=== PATIENT | male | born 1940 | race Caucasian/White ===

== ENCOUNTER 2017-05-24 15:26 | Inpatient (IN) | payer MEDICARE ==
[2017-05-24] MEDS ORDERED: HOME MEDICATION LIST NEEDED 1 EA EACH MC ONE (16:24)
[2017-05-24 16:32] LABS: HEMATOCRIT 44.3 % (42.0-54.0); HEMOGLOBIN 15.1 g/dL (14.0-18.0); MEAN CORPUSCULAR HEMOGLOBIN 33.1 pg (29.0-35.0); RED BLOOD COUNT 4.56 X 10^6uL (4.20-6.10); WHITE BLOOD COUNT 9.5 X 10^3uL (3.9-10.7)
[2017-05-24 16:33] LABS: BASOPHILS 0.4 % (0.0-2.0); BLOOD UREA NITROGEN 17 mg/dL (9-20); CALCIUM 9.8 mg/dL (8.4-10.2); CHLORIDE 105 mmol/L (98-107); EOSINOPHILS 1.6 % (0.0-6.0); EST GLOMERULAR FILTRATION RATE > 60 mL/min; GLUCOSE 101 mg/dL (70-100); LYMPHOCYTES 12.7 % (20.0-40.0); LYMPHOCYTES# 1.2 X 10^3uL (0.8-3.8); MEAN PLATELET VOLUME 6.9 fL (7.4-10.4); MONOCYTES 6.4 % (2.0-10.0); MONOCYTES# 0.6 X 10^3uL (0.2-1.0); NEUTROPHILS 78.9 % (54.0-75.0); NEUTROPHILS# 7.5 X 10^3uL (2.6-6.7); PLATELET COUNT 228 X 10^3uL (130-440); POTASSIUM 4.6 mmol/L (3.5-5.1); SODIUM 142 mmol/L (137-145)
[2017-05-24 16:34] LABS: EOSINOPHILS# 0.2 X 10^3uL (0.0-0.4)
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
[2017-05-24 16:57] LABS: INR 0.9
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
[2017-05-24] MEDS ORDERED: MORPHINE SULFATE 2 MG/ML SYR IV PRN (19:54)
--- NOTE | 2017-05-25 05:56 | RADIOLOGY REPORT ---
Four views of the left hip demonstrate transverse fracture of the femoral neck. There is mild superior displacement and external rotation. The hip joint appears unremarkable. Incidentally noted is right total hip replacement. No other abnormality is identified. IMPRESSION: Acute left femoral neck fracture. MTDD
--- NOTE | 2017-05-25 05:57 | RADIOLOGY REPORT ---
A limited supine rotated single portable view of the chest demonstrates the heart, vessels and lungs to be unremarkable. No infiltrate, fluid or pneumothorax is seen. IMPRESSION: Unremarkable limited single portable view of the chest is described. MTDD
[2017-05-25 06:52] LABS: BLOOD UREA NITROGEN 12 mg/dL (9-20); CALCIUM 8.8 mg/dL (8.4-10.2); CHLORIDE 104 mmol/L (98-107); EST GLOMERULAR FILTRATION RATE > 60 mL/min; GLUCOSE 135 mg/dL (70-100); POTASSIUM 3.6 mmol/L (3.5-5.1); SODIUM 138 mmol/L (137-145)
[2017-05-25 06:59] LABS: HEMATOCRIT 41.6 % (42.0-54.0); HEMOGLOBIN 14.1 g/dL (14.0-18.0); RED BLOOD COUNT 4.31 X 10^6uL (4.20-6.10); WHITE BLOOD COUNT 8.6 X 10^3uL (3.9-10.7)
[2017-05-25 07:00] LABS: BASOPHILS 0.3 % (0.0-2.0); EOSINOPHILS# 0.1 X 10^3uL (0.0-0.4); LYMPHOCYTES 15.1 % (20.0-40.0); LYMPHOCYTES# 1.3 X 10^3uL (0.8-3.8); MEAN CORPUS. HGB CONCENTRATION 33.9 g/dL (32.0-36.0); MEAN CORPUSCULAR HEMOGLOBIN 32.7 pg (29.0-35.0); MEAN PLATELET VOLUME 7.2 fL (7.4-10.4); MONOCYTES 8.7 % (2.0-10.0); MONOCYTES# 0.7 X 10^3uL (0.2-1.0); NEUTROPHILS 74.9 % (54.0-75.0); NEUTROPHILS# 6.4 X 10^3uL (2.6-6.7); PLATELET COUNT 201 X 10^3uL (130-440); RED CELL DISTRIBUTION WIDTH 11.6 % (11.5-14.5)
[2017-05-25] MEDS: ONDANSETRON HCL 4 MG/2 ML VIAL IV PRN ×2 (08:15→13:23)
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
[2017-05-25] MEDS ORDERED: ceFAZolin/DEXTROSE,ISO 2 GM/50 ML PIGGYBACK IV PRN ×3 (13:00→15:10)
[2017-05-25] MEDS ORDERED: TRANEXAMIC ACID 1,000 MG in NORMAL SALINE 100 ML IV SCH ×3 (13:00→15:10)
[2017-05-25] MEDS ORDERED: FAMOTIDINE IN SALINE, ISO-OSM 20 MG/50 ML PIGGYBACK IV SCH ×2 (13:03→15:10)
[2017-05-25] MEDS ORDERED: MORPHINE SULFATE 2 MG/ML SYR IV PRN ×2 (13:03→15:10)
[2017-05-25] MEDS ORDERED: LACTATED RINGERS 1,000 ML IV SCH ×3 (13:03→16:00)
[2017-05-25] MEDS ORDERED: LIDOCAINE HCL 1% 20 ML VIAL SUBCUT PRN ×2 (13:03→15:10)
[2017-05-25] MEDS ORDERED: DEXTROSE 5% LACTATED RINGERS 1,000 ML IV SCH ×4 (13:03→17:00)
[2017-05-25] MEDS ORDERED: ACETAMINOPHEN 1,000 MG/100 ML VIAL IV SCH ×2 (13:03→15:10)
[2017-05-25] MEDS ORDERED: MIDAZOLAM HCL 2 MG/2 ML SYR IV PRN ×2 (13:03→15:10)
[2017-05-25] MEDS ORDERED: FENTANYL 100 MCG/2 ML VIAL ONE (13:03)
[2017-05-25] MEDS ORDERED: ONDANSETRON HCL 4 MG/2 ML VIAL IV PRN ×6 (13:03→16:59)
[2017-05-25] MEDS ORDERED: MORPHINE SULFATE/PF 10 MG/10 ML VIAL ONE (13:04)
[2017-05-25] MEDS ORDERED: TETRACAINE HCL 1% 20 MG/2 ML AMP ONE (13:06)
[2017-05-25] MEDS ORDERED: BUPIVACAINE/EPI 0.5% 50 ML VIAL INFILTRAT ONE (13:27)
[2017-05-25] MEDS ORDERED: MIDAZOLAM HCL 2 MG/2 ML VIAL ONE (13:28)
[2017-05-25] MEDS ORDERED: TRANEXAMIC ACID 1,000 MG/10 ML VIAL IV ONE (13:29)
[2017-05-25] MEDS ORDERED: KETOROLAC TROMETHAMINE 30 MG/ML VIAL ONE (13:29)
[2017-05-25] MEDS ORDERED: ROPIVACAINE HCL 0.5% 30 ML ONE (13:30)
[2017-05-25 13:51] LABS: ABO GROUP TYPE A; ANTIBODY SCREEN NEGATIVE; RH TYPE NEGATIVE
[2017-05-25] MEDS ORDERED: EPHEDrine SULFATE 50 MG/ML VIAL ONE (14:40)
[2017-05-25] MEDS ORDERED: DIPHENHYDRAMINE 25 MG CAPSULE PO PRN ×2 (15:10→16:59)
[2017-05-25] MEDS ORDERED: FENTANYL 100 MCG/2 ML VIAL IV PRN (15:10)
[2017-05-25] MEDS ORDERED: DIPHENHYDRAMINE 50 MG/ML VIAL IV PRN ×2 (15:10→16:59)
[2017-05-25] MEDS ORDERED: NALOXONE HCL 0.4 MG/ML VIAL IV PRN ×6 (15:10→16:59)
[2017-05-25] MEDS ORDERED: NALBUPHINE HCL 10 MG/ML AMP IV PRN ×2 (15:10→16:59)
[2017-05-25] MEDS ORDERED: ceFAZolin 1 GM in NORMAL SALINE MINI-BAG+ 100 ML IV SCH (17:00)
--- NOTE | 2017-05-25 17:17 | PROCEDURE NOTE: Orthopedics ---
Orthopedic Procedure note - Brief Operative Note Date of procedure: 05/25/17 Pre-Op Diagnosis: Left femoral neck fracture Post-op diagnosis: same Procedure: Bipolar hemiarthroplasty of the left hip Implants: Biomet Echo bipolar components, with a size 11 uncemented stem, and a size 51 bipolar femoral head component Anesthesia Type: Spinal Physician: NANNETTE SHELLEY Estimated Blood Loss: 350 Specimen/Pathology: none sent Sponge/instrument count: correct X-ray/Fluoroscopy: No Condition: stable Disposition: PACU
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
[2017-05-25] MEDS: DOCUSATE SODIUM 100 MG CAPSULE PO SCH (21:52)
[2017-05-25] MEDS: CELECOXIB 100 MG CAPSULE PO SCH (21:52)
[2017-05-26] MEDS: ceFAZolin 1 GM in NORMAL SALINE MINI-BAG+ 100 ML IV SCH ×2 (03:08→10:18)
[2017-05-26 06:06] LABS: BLOOD UREA NITROGEN 7 mg/dL (9-20); CALCIUM 8.4 mg/dL (8.4-10.2); CHLORIDE 103 mmol/L (98-107); EST GLOMERULAR FILTRATION RATE > 60 mL/min; GLUCOSE 134 mg/dL (70-100); POTASSIUM 3.8 mmol/L (3.5-5.1); SODIUM 136 mmol/L (137-145)
--- NOTE | 2017-05-26 07:06 | RADIOLOGY REPORT ---
A single portable AP view of the pelvis is compared with films from the previous date. There has been interval placement of left bipolar proximal femoral hemiarthroplasty. Components appear intact and in appropriate position. No other change is identified. IMPRESSION: Interval left bipolar proximal femoral hemiarthroplasty. MTDD
[2017-05-26 07:09] LABS: BASOPHIL % (Manual) 0 % (0.0-2.0); EOSINOPHIL % (Manual) 0 % (0.0-6.0); HEMATOCRIT 36.9 % (42.0-54.0); HEMOGLOBIN 12.5 g/dL (14.0-18.0); LYMPHOCYTE % (Manual) 8 % (20.0-40.0); MEAN CORPUS. HGB CONCENTRATION 33.8 g/dL (32.0-36.0); MONOCYTE % (Manual) 10 % (2.0-10.0); NEUTROPHIL % (Manual) 82 % (54.0-75.0); PLATELET COUNT 165 X 10^3uL (130-440); PLATELET ESTIMATE ADEQUATE; RED BLOOD COUNT 4.77 X 10^6uL (4.20-6.10); WHITE BLOOD COUNT 8.1 X 10^3uL (3.9-10.7)
[2017-05-26] MEDS: ENOXAPARIN SODIUM 40 MG/0.4 ML SYR SUBCUT SCH (08:08)
[2017-05-26] MEDS: PANTOPRAZOLE 40 MG TABLET PO SCH (08:09)
[2017-05-26] MEDS: MULTIVITAMINS THERAPEUTIC 1 TABLET PO SCH (08:10)
[2017-05-26] MEDS: CELECOXIB 100 MG CAPSULE PO SCH ×2 (08:10→20:23)
[2017-05-26] MEDS: DOCUSATE SODIUM 100 MG CAPSULE PO SCH ×2 (08:11→20:23)
--- NOTE | 2017-05-26 09:45 | PROGRESS NOTE: IM APSO ---
Assessment and Plan - Date of Encounter Date of Encounter: 05/26/17 (1) Left displaced femoral neck fracture Status: Acute Assessment and plan: Now post op day # 1, seems to be doing well, will continue his physical therapy and occupational therapy. DVT prophylaxis with Lovenox. Current Visit: Yes (2) History of paroxysmal atrial tachycardia Status: Chronic Assessment and plan: Sinus rhythm on telemetry thus far. Will monitor for the rest of the day, and discontinue the telemetry if there are no issues. Current Visit: Yes - Time Spent With Patient Total time spent with greater than 50% in coordination of care (as documented) at patient's floor/unit and/or counseling patient: less than 15 minutes IM: PN Subjective Interval history: Patient is status post left hip arthroplasty for fracture, and is doing well. He has not had any overnight complications, and has remained in sinus rhythm on telemetry. General: no pain, no fever, no chills Cardiovascular: no chest pain, no chest pressure Respiratory: no cough, no SOB Gastrointestinal: no abdominal pain, no constipation Genitourinary: no dysuria Musculoskeletal: swelling, weakness, no pain Neurological: no headache IM: PN Objective Exam - I&O/Vital Signs I&O: Intake & Output 05/25/17 05/26/17 05/26/17 21:59 05:59 13:59 Intake Total 2250 300 1206 Output Total 650 400 135 Balance 1600 -100 1071 Weight 77.111 kg Intake: IV 2250 1206 RIGHT HAND 2250 1206 Oral 300 Output: Drainage 135 Left Hip 135 Urine 650 400 Uretheral (Lucas) 300 Other: Urine Appearance Clear Clear Clear Urine Color Yellow Yellow Yellow 2-way Urethral Yellow Uretheral (Lucas) Yellow Voiding Method Indwelling Catheter Indwelling Catheter Indwelling Catheter Vital Signs: Last Vital Signs Temp 37.1 C 05/26/17 06:17 Pulse 80 05/26/17 06:17 Resp 15 05/26/17 09:00 BP 114/62 05/26/17 06:17 Pulse Ox 94 05/26/17 09:00 Oxygen Flow Rate 2 Oxygen Delivery Method Nasal Cannula - Constitutional General appearance: Present: average body habitus - Head Head exam: Present: normal inspection - Eye Eye exam: Present: EOMI. Absent: conjunctival injection Pupils: Present: PERRL - ENT ENT exam: Present: mucous membranes moist - Neck Neck exam: Present: full ROM - Respiratory Respiratory exam: Present: CTAB - Cardiovascular Cardiovascular exam: Present: RRR - GI/Abdominal GI/Abdominal exam: Present: normal bowel sounds, soft. Absent: tenderness - Extremities Exam Extremities exam: Present: normal capillary refill. Absent: calf tenderness - Neurological Exam Neurological exam: Present: CN II-XII intact - Psychiatric Psychiatric exam: Present: normal affect - Allied Health Notes Allied health notes reviewed: case management, PT - Lab Labs: Laboratory Last Values WBC 8.1 X 10^3uL (3.9-10.7) 05/26/17 04:20 RBC 4.77 X 10^6uL (4.20-6.10) 05/26/17 04:20 Hgb 12.5 g/dL (14.0-18.0) L 05/26/17 04:20 Hct 36.9 % (42.0-54.0) L 05/26/17 04:20 MCV 98.0 fL (80.0-100.0) 05/26/17 04:20 MCH 33.0 pg (29.0-35.0) 05/26/17 04:20 MCHC 33.8 g/dL (32.0-36.0) 05/26/17 04:20 RDW Not Reportable 05/26/17 04:20 Plt Count 165 X 10^3uL (130-440) 05/26/17 04:20 MPV Not Reportable 05/26/17 04:20 Total Counted 100 05/26/17 04:20 Neutrophils % 74.9 % (54.0-75.0) 05/25/17 05:00 Neutrophils % (Manual) 82 % (54.0-75.0) H 05/26/17 04:20 Lymphocytes % 15.1 % (20.0-40.0) L 05/25/17 05:00 Lymphocytes % (Manual) 8 % (20.0-40.0) L 05/26/17 04:20 Monocytes % (Manual) 10 % (2.0-10.0) 05/26/17 04:20 Eosinophils % 1.0 % (0.0-6.0) 05/25/17 05:00 Eosinophils % (Manual) 0 % (0.0-6.0) 05/26/17 04:20 Basophils % 0.3 % (0.0-2.0) 05/25/17 05:00 Basophils % (Manual) 0 % (0.0-2.0) 05/26/17 04:20 Neutrophils # 6.4 X 10^3uL (2.6-6.7) 05/25/17 05:00 Lymphocytes # 1.3 X 10^3uL (0.8-3.8) 05/25/17 05:00 Monocytes 8.7 % (2.0-10.0) 05/25/17 05:00 Monocytes # 0.7 X 10^3uL (0.2-1.0) 05/25/17 05:00 Eosinophils # 0.1 X 10^3uL (0.0-0.4) 05/25/17 05:00 Basophils # 0.0 X 10^3uL (0.0-0.1) 05/25/17 05:00 Platelet Estimate Adequate 05/26/17 04:20 PT 14.2 sec (13.0-16.6) 05/24/17 16:15 INR 0.9 05/24/17 16:15 Sodium 136 mmol/L (137-145) L 05/26/17 04:20 Potassium 3.8 mmol/L (3.5-5.1) 05/26/17 04:20 Chloride 103 mmol/L (98-107) 05/26/17 04:20 Carbon Dioxide 26 mmol/L (22-30) 05/26/17 04:20 BUN 7 mg/dL (9-20) L 05/26/17 04:20 Creatinine 0.6 mg/dL (0.7-1.3) L 05/26/17 04:20 GFR Calculation > 60 mL/min 05/26/17 04:20 Glucose 134 mg/dL (70-100) H 05/26/17 04:20 Calcium 8.4 mg/dL (8.4-10.2) 05/26/17 04:20 ABO Group Type a 05/25/17 06:03 Rh Factor Negative 05/25/17 06:03 Antibody Screen Negative 05/25/17 06:03 Quality Questions - VTE Prophylaxis Assessment Patient at risk for venous thromboembolism?: Yes VTE Risk Level: High Risk Pharmaceutical VTE prophylaxis contraindication reason: N/A- VTE prophylaxsis ordered Mechanical VTE prophylaxis contraindication reason: N/A- VTE prophylaxsis ordered
--- NOTE | 2017-05-26 11:53 | PROGRESS NOTE: Orthopedics ---
Orthopedic PN Subjective - Subjective Principal Diagnosis: Postop hemiarthroplasty left hip Post-op Day: 1 Interval history: The patient feels well this morning, with minimal if any pain. He can already actively lift his left lower extremity. Also he reports that he has already been able to ambulate out into the hallway with his walker. Ortho PN Objective Exam - Latest Vital Signs and I&O Latest Vital Signs/I&O: Vital Signs Temp 37.2 C 05/26/17 11:00 Pulse 78 05/26/17 11:00 Resp 16 05/26/17 11:00 BP 107/66 05/26/17 11:00 Pulse Ox 93 05/26/17 11:00 Intake & Output 05/25/17 05/26/17 05/26/17 17:59 05:59 17:59 Intake Total 2876 300 1206 Output Total 950 400 135 Balance 1926 -100 1071 Weight 77.111 kg Intake: IV 2876 1206 RIGHT HAND 2876 1206 Oral 300 Output: Drainage 135 Left Hip 135 Urine 950 400 Uretheral (Lucas) 600 Other: Urine Appearance Clear Clear Clear Urine Color Yellow Yellow Yellow 2-way Urethral Yellow Uretheral (Lucas) Yellow Voiding Method Indwelling Catheter Indwelling Catheter Indwelling Catheter - Post-Operative Exam Dressing Status: dry & intact Drainage Amount: none Active Motor: intact Sensation: intact Xenia's sign: Negative - Lab Labs: Laboratory Last Values WBC 8.1 X 10^3uL (3.9-10.7) 05/26/17 04:20 RBC 4.77 X 10^6uL (4.20-6.10) 05/26/17 04:20 Hgb 12.5 g/dL (14.0-18.0) L 05/26/17 04:20 Hct 36.9 % (42.0-54.0) L 05/26/17 04:20 MCV 98.0 fL (80.0-100.0) 05/26/17 04:20 MCH 33.0 pg (29.0-35.0) 05/26/17 04:20 MCHC 33.8 g/dL (32.0-36.0) 05/26/17 04:20 RDW Not Reportable 05/26/17 04:20 Plt Count 165 X 10^3uL (130-440) 05/26/17 04:20 MPV Not Reportable 05/26/17 04:20 Total Counted 100 05/26/17 04:20 Neutrophils % 74.9 % (54.0-75.0) 05/25/17 05:00 Neutrophils % (Manual) 82 % (54.0-75.0) H 05/26/17 04:20 Lymphocytes % 15.1 % (20.0-40.0) L 05/25/17 05:00 Lymphocytes % (Manual) 8 % (20.0-40.0) L 05/26/17 04:20 Monocytes % (Manual) 10 % (2.0-10.0) 05/26/17 04:20 Eosinophils % 1.0 % (0.0-6.0) 05/25/17 05:00 Eosinophils % (Manual) 0 % (0.0-6.0) 05/26/17 04:20 Basophils % 0.3 % (0.0-2.0) 05/25/17 05:00 Basophils % (Manual) 0 % (0.0-2.0) 05/26/17 04:20 Neutrophils # 6.4 X 10^3uL (2.6-6.7) 05/25/17 05:00 Lymphocytes # 1.3 X 10^3uL (0.8-3.8) 05/25/17 05:00 Monocytes 8.7 % (2.0-10.0) 05/25/17 05:00 Monocytes # 0.7 X 10^3uL (0.2-1.0) 05/25/17 05:00 Eosinophils # 0.1 X 10^3uL (0.0-0.4) 05/25/17 05:00 Basophils # 0.0 X 10^3uL (0.0-0.1) 05/25/17 05:00 Platelet Estimate Adequate 05/26/17 04:20 PT 14.2 sec (13.0-16.6) 05/24/17 16:15 INR 0.9 05/24/17 16:15 Sodium 136 mmol/L (137-145) L 05/26/17 04:20 Potassium 3.8 mmol/L (3.5-5.1) 05/26/17 04:20 Chloride 103 mmol/L (98-107) 05/26/17 04:20 Carbon Dioxide 26 mmol/L (22-30) 05/26/17 04:20 BUN 7 mg/dL (9-20) L 05/26/17 04:20 Creatinine 0.6 mg/dL (0.7-1.3) L 05/26/17 04:20 GFR Calculation > 60 mL/min 05/26/17 04:20 Glucose 134 mg/dL (70-100) H 05/26/17 04:20 Calcium 8.4 mg/dL (8.4-10.2) 05/26/17 04:20 ABO Group Type a 05/25/17 06:03 Rh Factor Negative 05/25/17 06:03 Antibody Screen Negative 05/25/17 06:03 Assessment and Plan-Ortho - Date of Encounter Date of Encounter: 05/26/17 (1) Left displaced femoral neck fracture Status: Acute Assessment and plan: The patient is doing quite well following hemiarthroplasty of the left hip for a displaced femoral neck fracture. Plan: Today we removed his drain, and he has already begun mobilization and physical therapy. We will recheck his hemoglobin and hematocrit tomorrow morning. Current Visit: Yes
[2017-05-26] MEDS ORDERED: MAGNESIUM HYDROXIDE 30 ML UDC PO PRN (20:29)
[2017-05-27 06:29] VITALS: BP 119/73; PULSE 69; TEMP 98.1
[2017-05-27 08:01] LABS: HEMOGLOBIN 11.9 g/dL (14.0-18.0)
--- NOTE | 2017-05-27 09:31 | PROGRESS NOTE: Orthopedics ---
Orthopedic PN Subjective - Subjective Principal Diagnosis: Postop bipolar hemiarthroplasty left hip Post-op Day: 2 Interval history: The patient feels very well today. He is still having minimal pain and is able to crutch ambulate several 100 feet at a time. Ortho PN Objective Exam - Latest Vital Signs and I&O Latest Vital Signs/I&O: Vital Signs Temp 36.7 C 05/27/17 06:27 Pulse 69 05/27/17 06:27 Resp 16 05/27/17 06:27 BP 119/73 05/27/17 06:27 Pulse Ox 88 L 05/27/17 08:17 Intake & Output 05/26/17 05/27/17 05/27/17 17:59 05:59 17:59 Intake Total 2346 400 Output Total 1260 550 Balance 1086 -150 Intake: IV 1206 RIGHT HAND 1206 Oral 1140 400 Output: Drainage 135 Left Hip 135 Urine 1125 550 Other: Urine Appearance Clear Clear Urine Color Yellow Straw Stool Size Smear Stool Characteristics Brown Voiding Method Toilet Urinal # Voids 2 # Bowel Movements 1 - Post-Operative Exam Incision: Present: clean and dry Drainage Amount: minimal Drainage Description: sanguineous Sensation: intact Xenia's sign: Negative Calf tenderness: no - Lab Labs: Laboratory Last Values WBC 8.1 X 10^3uL (3.9-10.7) 05/26/17 04:20 RBC 4.77 X 10^6uL (4.20-6.10) 05/26/17 04:20 Hgb 11.9 g/dL (14.0-18.0) L 05/27/17 06:30 Hct 35.0 % (42.0-54.0) L 05/27/17 06:30 MCV 98.0 fL (80.0-100.0) 05/26/17 04:20 MCH 33.0 pg (29.0-35.0) 05/26/17 04:20 MCHC 33.8 g/dL (32.0-36.0) 05/26/17 04:20 RDW Not Reportable 05/26/17 04:20 Plt Count 165 X 10^3uL (130-440) 05/26/17 04:20 MPV Not Reportable 05/26/17 04:20 Total Counted 100 05/26/17 04:20 Neutrophils % 74.9 % (54.0-75.0) 05/25/17 05:00 Neutrophils % (Manual) 82 % (54.0-75.0) H 05/26/17 04:20 Lymphocytes % 15.1 % (20.0-40.0) L 05/25/17 05:00 Lymphocytes % (Manual) 8 % (20.0-40.0) L 05/26/17 04:20 Monocytes % (Manual) 10 % (2.0-10.0) 05/26/17 04:20 Eosinophils % 1.0 % (0.0-6.0) 05/25/17 05:00 Eosinophils % (Manual) 0 % (0.0-6.0) 05/26/17 04:20 Basophils % 0.3 % (0.0-2.0) 05/25/17 05:00 Basophils % (Manual) 0 % (0.0-2.0) 05/26/17 04:20 Neutrophils # 6.4 X 10^3uL (2.6-6.7) 05/25/17 05:00 Lymphocytes # 1.3 X 10^3uL (0.8-3.8) 05/25/17 05:00 Monocytes 8.7 % (2.0-10.0) 05/25/17 05:00 Monocytes # 0.7 X 10^3uL (0.2-1.0) 05/25/17 05:00 Eosinophils # 0.1 X 10^3uL (0.0-0.4) 05/25/17 05:00 Basophils # 0.0 X 10^3uL (0.0-0.1) 05/25/17 05:00 Platelet Estimate Adequate 05/26/17 04:20 PT 14.2 sec (13.0-16.6) 05/24/17 16:15 INR 0.9 05/24/17 16:15 Sodium 136 mmol/L (137-145) L 05/26/17 04:20 Potassium 3.8 mmol/L (3.5-5.1) 05/26/17 04:20 Chloride 103 mmol/L (98-107) 05/26/17 04:20 Carbon Dioxide 26 mmol/L (22-30) 05/26/17 04:20 BUN 7 mg/dL (9-20) L 05/26/17 04:20 Creatinine 0.6 mg/dL (0.7-1.3) L 05/26/17 04:20 GFR Calculation > 60 mL/min 05/26/17 04:20 Glucose 134 mg/dL (70-100) H 05/26/17 04:20 Calcium 8.4 mg/dL (8.4-10.2) 05/26/17 04:20 ABO Group Type a 05/25/17 06:03 Rh Factor Negative 05/25/17 06:03 Antibody Screen Negative 05/25/17 06:03 Assessment and Plan-Ortho - Date of Encounter Date of Encounter: 05/27/17 (1) Left displaced femoral neck fracture Status: Acute Assessment and plan: The patient is doing very well postop bipolar hemiarthroplasty of the left hip for a left femoral neck fracture. Plan: Due to the fact that he is doing so well, we will go ahead and discharge him today. He is planning on staying in the area in hotel for a couple of days before flying home. We will give him discharge instructions, and have him follow-up with orthopedic surgeon at home in approximately 3-4 weeks. Current Visit: Yes
[2017-05-27] MEDS: ENOXAPARIN SODIUM 40 MG/0.4 ML SYR SUBCUT SCH (09:32)
[2017-05-27] MEDS: CELECOXIB 100 MG CAPSULE PO SCH (09:32)
[2017-05-27] MEDS: DOCUSATE SODIUM 100 MG CAPSULE PO SCH (09:33)
[2017-05-27] MEDS: PANTOPRAZOLE 40 MG TABLET PO SCH (09:33)
[2017-05-27] MEDS: MULTIVITAMINS THERAPEUTIC 1 TABLET PO SCH (09:33)
[2017-05-27 10:19] VITALS: RESP 18; O2SAT 91
== END 2017-05-27 09:49 | disposition home or self-care (01) | DRG 470 ==
LOC: ER 15:26 → IN 16:49
PROVIDERS: ADMIT Orthopaedic Surgery; ATTEND Orthopaedic Surgery
PROC: 0SRS01A Replacement of Left Hip Joint, Femoral Surface with Metal Synthetic Substitute, Uncemented, Open Approach (ICD-10-PCS; principal; 2017-05-24)
DX: S72.092A Other fracture of head and neck of left femur, initial encounter for closed fracture (principal); V18.0XXA Pedal cycle driver injured in noncollision transport accident in nontraffic accident, initial encounter; K21.9 Gastro-esophageal reflux disease without esophagitis; J45.909 Unspecified asthma, uncomplicated; Z79.899 Other long term (current) drug therapy
CPT/HCPCS: 36415; 71010; 72170; 80048; 85007; 85014; 85018; 85025; 85027; 85610; 86850; 86900; 86901; 93005; 93041; 99285; A0425; A0429; J0171; J0690; J1170; J1650; J1885; J2250; J2405; J2795; J3010; S0020